=== PATIENT | male | born 1995 | race Caucasian/White ===

== ENCOUNTER 2020-07-02 15:54 | Emergency (ER) | payer BC ==
[~2020-07-02] VITALS: Ht 182.9 cm; Wt 83.9 kg
[2020-07-02 15:58] VITALS: Ht 182.9 cm; Wt 83.9 kg
[2020-07-02] MEDS ORDERED: ATIVAN1 MG PO (17:13)
[2020-07-02 17:37] VITALS: BP 121/71
== END 2020-07-02 17:37 | disposition home or self-care (01) ==
LOC: ED 15:54
DX: R00.2 Palpitations (principal)